=== PATIENT | male | born 1975 | race Two or more races ===

== ENCOUNTER → 2018-05-09 | Outpatient (CLI) | payer BC ==
--- NOTE | 2018-05-09 08:18 | CT ---
EXAMINATION TYPE: CT soft tissue neck w con DATE OF EXAM: 05/09/2018 HISTORY: Lt neck mass COMPARISON: NONE CT DLP: 558.3 mGycm. Automated Exposure Control for Dose Reduction was Utilized. TECHNIQUE: CT scan of the neck is performed with IV Contrast, patient injected with 100 mL of Isovue 300, axial images are obtained, coronal and sagittal reformatted images are reviewed. FINDINGS: Airway: The vallecula, piriform sinuses, and infraglottic airway are unremarkable. True and false voc al cords are also unremarkable. There is palatine tonsillar hypertrophy bilaterally resulting in sign ificant narrowing of the airway. Punctate benign tonsiliths are also present. 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 Parotid/submandibular glands: No gross abnormality seen. Carotid/Vascular Structures: There is a conventional three-vessel branch pattern of the aortic arch. No hemodynamically significant stenosis within the major vasculature of the neck. Vertebral arteries appear patent. Osseous Structures: There is a mucosal retention cyst within the left maxillary sinus measuring 1.6 c m. Trace mucosal thickening is also present within the right maxillary sinus. Remaining visualized pa ranasal sinuses and mastoid air cells are well aerated. Mild multilevel degenerative changes of the s pine are seen. Other: The left supraclavicular palpable BB marker overlies the external jugular vein and deep to thi s lies the morphologically unremarkable sternocleidomastoid muscle. Scattered bilateral nonenlarged m orphologically normal-appearing lymph nodes are seen throughout the neck. The thyroid gland appears n onenlarged and symmetric. Visualized portions of the brain are limited due to technique. IMPRESSION: 1. Palpable left supraclavicular lesion relates to the external jugular vein. Deep to this there is a morphologically unremarkable sternocleidomastoid muscle. No suspicious mass. No pathologic adenopath y in the neck. 2. Bilateral tonsillar hypertrophy significantly narrowing the airway. 3. Left maxillary sinus mucosal retention cyst.
== END | disposition home or self-care (01) ==
LOC: RADCTMAIN 07:01
PROVIDERS: ATTEND Family Medicine
DX: J35.1 Hypertrophy of tonsils (principal); R22.1 Localized swelling, mass and lump, neck
CPT/HCPCS: 70491; Q9967